=== PATIENT | male | born 1975 | race African-American/Black ===

== ENCOUNTER 2016-10-25 20:46 | Emergency (ER) | payer SELFPAY ==
--- NOTE | ~2016-10-25 | CR2 ---
[facility] A Service of [facility] RADIOLOGY TEXT RESULTS PATIENT: ELIZABETH OLVERA LOCATION: SED : 75 UNIT #: [id number] AGE: [address]: Fritz Huber MD SEX: M ORDER DR: [id number] [address] [address] [id number] MR#: [id number] Acc #: [id number] NAME: ELIZABETH OLVERA : 1975 SEX: M STUDY DATE/TIME: 10/25/2016 21:39 UNIT: SED ROOM: STUDY DESCRIPTION: CR Abdomen Acute Series Attending Physician: Fritz Huber M.D. Ordering Physician: Fritz Huber M.D. Primary Care Physician: No Primary Care Physician MEDICAL IMAGING REPORT This report is preliminary unless electronic signature is present. EXAM Acute abdomen series. DATE OF EXAM 10/25/2016 HISTORY 40-year-old male with abdominal pain for [address] abdomen and pelvis, 03/07/2016. FINDINGS Frontal chest and 3 flat and upright views of the abdomen were performed. 4 total images. The lungs and pleural spaces are clear. No pneumothorax. Mild cardiomegaly. Mediastinum and pulmonary vasculature unremarkable. The bowel gas pattern is nonobstructive. No free intraperitoneal air. No pathologic calcifications projecting over the renal shadows. Moderate stool burden. No acute bony abnormality. IMPRESSION 1. Mild cardiomegaly. 2. Nonobstructive bowel gas pattern. Moderate stool burden. Dictated by... Pedro Duncan M.D. THIS IS AN ELECTRONICALLY VERIFIED REPORT Pedro Duncan M.D. at 10/29/2016 7:49 AM CHRISSY/andreina [facility] A Service of [facility] RADIOLOGY TEXT RESULTS PATIENT: ELIZABETH OLVERA LOCATION: SED : 75 UNIT #: [id number] AGE: [address]: Fritz Huber MD SEX: M ORDER DR: TD: 10/26/2016 02:18 JOB #: [id number] MEDICAL IMAGING REPORT Page 1 of 1
[~2016-10-25 20:46] MED LIST: PROTONIX20 MG
[2016-10-25] MEDS ORDERED: PHENERGAN25 M1 PO (20:52)
[2016-10-25 21:31] LABS: BASOPHIL% 0.4 % (0-2.5); EOSINOPHIL# 0.2 X10e3 (0-0.7); EOSINOPHIL% 3.1 % (0.0-7.0); HEMOGLOBIN 9.5 gm/dL (13.0-16.0); LYMPHOCYTE# 2.9 X10e3 (1.0-3.5); LYMPHOCYTE% 40.7 % (17.0-45.0); MEAN CELL VOLUME 65.3 FL (83-96); MEAN CORPUSCULAR HGB CONC 30.7 g/dL (30-36); MEAN PLATELET VOLUME 6.8 FL (6.5-11.5); MONOCYTE# 1.1 X10e3 (0-1.0); MONOCYTE% 14.9 % (3.0-12.0); NEUTROPHIL# 2.9 X10e3 (1.5-7.1); NEUTROPHIL% 40.9 % (40-75); PLATELET COUNT 399 X10e3 (140-420); RED BLOOD COUNT 4.74 X10e (3.90-5.60); RED CELL DISTRIBUTION WIDTH 21.4 % (11.0-15.5); WHITE BLOOD COUNT 7.1 X10e3 (4.0-10.5)
[2016-10-25 21:34] LABS: DIFF IND NO
[2016-10-25 21:43] LABS: ALBUMIN SERUM 3.6 g/dL (3.5-5.0); BILIRUBIN,TOTAL 0.1 mg/dL (0.2-2.0); BUN/CREATININE RATIO 13.63; CALCIUM SERUM 8.6 mg/dL (8.4-10.2); CREATININE SERUM 1.1 mg/dL (0.6-1.4); GLOM FILT RATE Estimated 96.8 mL/min (>60); POTASSIUM 3.9 mmol/L (3.5-5.1); PROTEIN TOTAL SERUM 6.8 g/dL (6.0-8.3)
[2016-10-25 22:25] LABS: URINE SOURCE CLEAN CATCH
[2016-10-25 22:28] LABS: URINE APPEARANCE CLEAR; URINE BLOOD NEG (NEG); URINE COLOR YELLOW; URINE GLUCOSE NEG (NORM); URINE KETONE NEG (NEG); URINE LEUKOCYTE ESTERASE NEG (NEG); URINE NITRATE NEG (NEG); URINE PROTEIN TRACE (NEG); URINE SPECIFIC GRAVITY 1.025 (1.003-1.035)
[2016-10-25 22:33] LABS: CULTURE INDICATED? NO; MICRO INDICATED? YES; URINE BACTERIA NEG (NEG); URINE BILIRUBIN NEG (NEG); URINE MUCUS PRESENT; URINE RBC 0-2 /[HPF] (0-2); URINE SQUAMOUS EPITHELIAL CELL OCCAS /[HPF]; URINE WBC 0-2 /[HPF] (0-5)
== END 2016-10-25 22:56 | disposition home or self-care (01) ==
LOC: SED 20:46
DX: K29.70 Gastritis, unspecified, without bleeding (principal); F17.210 Nicotine dependence, cigarettes, uncomplicated; Z79.899 Other long term (current) drug therapy
CPT/HCPCS: 74022; 80053; 81003; 83690; 85025; 96374; 96375; 99284; J2550

== ENCOUNTER 2016-11-06 21:13 | Emergency (ER) | payer SELFPAY ==
[~2016-11-06 21:13] MED LIST changes: +PHENERGAN25 M1 PO
== END 2016-11-06 21:39 | disposition home or self-care (01) ==
LOC: SED 21:13
DX: Z76.0 Encounter for issue of repeat prescription (principal); D64.9 Anemia, unspecified; F17.200 Nicotine dependence, unspecified, uncomplicated
CPT/HCPCS: 99283

== ENCOUNTER 2016-11-11 13:50 | Emergency (ER) | payer SELFPAY | END 2016-11-11 14:15 | disposition home or self-care (01) | LOC: SED 13:50 | DX: Z76.0 Encounter for issue of repeat prescription (principal); K21.9 Gastro-esophageal reflux disease without esophagitis; Z79.899 Other long term (current) drug therapy | CPT/HCPCS: 99281 ==

== ENCOUNTER 2017-01-09 00:43 | Emergency (ER) | payer SELFPAY ==
[~2017-01-09] VITALS: Ht 188 cm; Wt 102.0 kg
[2017-01-09 01:55] LABS: BASOPHIL# 0.1 X10e3 (0-0.3); BASOPHIL% 1.6 % (0-2.5); EOSINOPHIL# 0.1 X10e3 (0-0.7); EOSINOPHIL% 0.9 % (0.0-7.0); HEMATOCRIT 37.4 % (38.0-50.0); HEMOGLOBIN 11.4 gm/dL (13.0-16.0); LYMPHOCYTE# 2.3 X10e3 (1.0-3.5); MEAN CELL VOLUME 67.6 FL (83-96); MEAN CORPUSCULAR HEMOGLOBIN 20.5 PG (28-34); MEAN CORPUSCULAR HGB CONC 30.4 g/dL (30-36); MEAN PLATELET VOLUME 6.7 FL (6.5-11.5); MONOCYTE# 0.8 X10e3 (0-1.0); NEUTROPHIL# 3.7 X10e3 (1.5-7.1); NEUTROPHIL% 53.5 % (40-75); PLATELET COUNT 430 X10e3 (140-420); RED BLOOD COUNT 5.54 X10e (3.90-5.60); RED CELL DISTRIBUTION WIDTH 22.2 % (11.0-15.5)
[2017-01-09 01:58] LABS: DIFF IND NO
[2017-01-09 02:12] LABS: ALBUMIN SERUM 4.6 g/dL (3.5-5.0); ALKALINE PHOSPHATASE 51 U/L (32-92); ALT (SGPT) 19 U/L (10-40); AMYLASE 18 U/L (0-46); AST (SGOT) 19 U/L (10-42); BILIRUBIN,TOTAL 0.7 mg/dL (0.2-2.0); BLOOD UREA NITROGEN 16 mg/dL (9-23); BUN/CREATININE RATIO 11.42; CALCIUM SERUM 9.3 mg/dL (8.4-10.2); CARBON DIOXIDE 25 mmol/L (22-31); CHLORIDE 103 mmol/L (100-111); CREATININE SERUM 1.4 mg/dL (0.6-1.4); GLOM FILT RATE Estimated 71.8 mL/min (>60); GLUCOSE FASTING 98 mg/dL (70-110); LIPASE 28 U/L (22-51); POTASSIUM 3.5 mmol/L (3.5-5.1); PROTEIN TOTAL SERUM 7.9 g/dL (6.0-8.3); SODIUM 138 mmol/L (135-145)
[2017-01-09 02:16] LABS: BILIRUBIN, DIRECT <0.1 mg/dL (0.0-0.2); BILIRUBIN,INDIRECT 0.6 mg/dL (0.0-0.9)
== END 2017-01-09 02:42 | disposition home or self-care (01) ==
LOC: SED 00:43
PROVIDERS: Nurse Practitioner Family
DX: K29.70 Gastritis, unspecified, without bleeding (principal); F17.210 Nicotine dependence, cigarettes, uncomplicated
CPT/HCPCS: 36415; 80048; 80076; 82150; 83690; 85025; 96361; 96374; 96375; 99284; C9113; J2405

== ENCOUNTER 2017-01-23 15:06 | Emergency (ER) | payer SELFPAY ==
[~2017-01-23] VITALS: Ht 188 cm; Wt 102.0 kg
== END 2017-01-23 16:56 | disposition home or self-care (01) ==
LOC: SED 15:06
DX: Z76.0 Encounter for issue of repeat prescription (principal); K21.9 Gastro-esophageal reflux disease without esophagitis; F17.210 Nicotine dependence, cigarettes, uncomplicated
CPT/HCPCS: 99281